=== PATIENT | male | born 1965 | race Caucasian/White ===

== ENCOUNTER → 2020-03-15 09:08 | Outpatient (BNVA) | payer BC, SELFPAY | PROVIDERS: PCP Internal Medicine; Referring Provider Internal Medicine; Visit Provider Surgery | DX: Z76.89 Persons encountering health services in other specified circumstances (principal) ==

== ENCOUNTER 2020-03-25 09:25 | Day surgery (SDC) | payer BC, SELFPAY ==
[2020-03-21 15:16] VITALS: BMI 20.9
--- NOTE | 2020-03-22 11:19 | P.CONAN_ITS ---
Documented by User: Tata Hicks 03/22/20 11:19 HPI - Anesthesia Eval Consult details Narrative: 54yo M for right Hernia Repair Inguinal [facility] Past Medical History Medical History Colon polyps Right inguinal hernia Family History Family History Paternal Grandfather History of lung cancer Paternal Uncle History of lung cancer Surgical History Surgical History History of colonoscopy (~2018) History of herniorrhaphy History of left inguinal hernia repair (~1999) History of vasectomy Social History Social History Smoking Status: Never smoker Second Hand Smoke Exposure: No Use of substances other than those prescribed or required for medical reasons: No Advance Directives: No Advance Directives Information Provided: Yes Advance Directives on File: No Meds Allergies Allergy/AdvReac Type Severity Reaction Status Date / Time No Known Allergies Allergy Verified 03/15/20 08:41 Exam Exam Date and Time: March 22, 2020 1119 Height,Weight and Vital Signs: Height 6 ft 2 in Weight 73.9 kg Assessment and Plan Assessment Anesthesia Assessment: Chart Reviewed Documented by User: Luz Naranjo 03/25/20 12:12 [facility] Past Medical History Medical History Colon polyps Right inguinal hernia Family History Family History Paternal Grandfather History of lung cancer Paternal Uncle History of lung cancer Family history of problems with anesthesia: No Surgical History Surgical History History of colonoscopy (~2018) History of herniorrhaphy History of left inguinal hernia repair (~1999) History of vasectomy History of Problems with Anesthesia: No Social History Social History Smoking Status: Never smoker Second Hand Smoke Exposure: No Use of substances other than those prescribed or required for medical reasons: No Advance Directives: No Advance Directives Information Provided: Yes Advance Directives on File: No Meds Allergies Allergy/AdvReac Type Severity Reaction Status Date / Time No Known Allergies Allergy Verified 03/15/20 08:41 Exam Height,Weight and Vital Signs: Vital Signs Temp Pulse Resp BP Pulse Ox 03/25/20 10:06 97.1 F 62 16 120/83 98 Airway Mallampati Class: I TM Dist: >3cm Neck ROM: Full Heart: RRR Lungs: CTAB Assessment and Plan Assessment Anesthesia Assessment: Anesthesia Plan Discussed and Chart Reviewed Final Anesthetic Review NPO: Yes ASA Class: I Final Preanesthetic Review: No Changes in Pt Med Stat, Consent Obtained/Reviewed and Anes Risks/Benef Reviewed Patient Risk: Low Procedure Risk: Low Anesthetic Plan Anesthetic Plan: GA Disposition: Standard PACU
[2020-03-25 10:06] VITALS: BP 120/83; PULSE 62; RESP 16; TEMP 36.2; O2SAT 98
[2020-03-25] MEDS: Lactated Ringers 1,000 ML 100 ML IVCONT (10:22)
[2020-03-25] MEDS: ceFAZolin Sodium/Dextrose,Iso 2 GM/50 ML PIGGYBACK IV (10:22)
--- NOTE | 2020-03-25 10:49 | MHC.SHP ---
Pre-Procedural Eval Section A The patient is an INPATIENT: No Changes since office visit: Yes Patient answered all questions; No Cold of Flu in the past 2 weeks, No New Medical Problems and No Changes in Medication The History & Physical has been completed within 30 days and I have reviewed it.: Yes Section B Chief Complaint: Right Inguinal Hernia Allergies: Allergies Allergy/AdvReac Type Severity Reaction Status Date / Time No Known Allergies Allergy Verified 03/15/20 08:41 Plan Diagnosis/Plan: Unchanged Patient has been examined and remains a candidate for the planned procedure
--- NOTE | 2020-03-25 11:37 | PM.OP ---
Brief Operative Note Date of procedure: 03/25/20 Pre-op diagnosis: Right inguinal hernia Post-op diagnosis: same Procedure: repair of right inguinal hernia with mesh Implants: PHS mesh large Extended Surgeon: Adi Walton MD Anesthesia: GETA Estimated blood loss (mL): 5 Pathology: none sent Condition: stable Disposition: PACU
--- NOTE | 2020-03-25 11:39 | P.OP_ITS ---
Operative Note Operative Note Narrative: Date of procedure: 03/25/20 Pre-op diagnosis: Right inguinal hernia Post-op diagnosis: same Procedure: repair of right inguinal hernia with mesh Indications for surgery: 54-year-old male patient presenting with a lump in the right groin which increases with Valsalva maneuvers, coughing, sneezing and is causing discomfort. The hernia is reducible with light pressure. Presents today for repair with mesh Operative findings: Patient was found to have a small indirect hernia with lipoma of the cord. Procedure details: The patient was brought to the OR placed in the supine position. After administering general anesthesia the patient's abdomen was prepped with ChloraPrep and draped in a sterile fashion. A surgical time-out was called and consent confirmed. Patient received preoperative antibiotics and Venodyne boots were placed. Local anesthesia consisting of 0.75% Sensorcaine was infiltrated over the right inguinal ligament. Incision was then made with the scalpel just above the inguinal ligament and oblique fashion. This was carried down through subcutaneous tissue, past Sunday's fascia, and up to the external oblique aponeurosis. Additional local was placed below the aponeurosis. The aponeurosis was then incised in the direction of the fibers. This was then widened with Metzenbaum scissors. The spermatic cord was then dissected free from the inguinal canal and retracted with a [place] drain. The floor of the inguinal canal was found to be intact without hernia. Fibers of the cremasteric muscle were then between clamps and a small hernia sac identified. Small lipoma was also identified within the Spermatic cord. This was freed up from the surrounding tissue and then reduced into the abdominal cavity. Fibers of the internal oblique aponeurosis and transversalis aponeurosis were then incised with the cautery. The preperitoneal space was then entered. The space was then widened with a open Ray-Jaquelin sponge. And large extended PHS mesh was then obtained. The circular underlay was placed in the preperitoneal space. The overlay was then secured to the pubic tubercle conjoined tendon and shelving edge of the inguinal ligament using a 0 Polysorb suture. A slit was made in the mesh to allow passage of the spermatic cord at the internal ring. This was then wrapped around the cord and secured to the shelving edge of the inguinal ligament. The opening was fashion to allow the tip of an index finger to pass. The remainder of the extended mesh was placed below the external oblique aponeurosis laterally. Wounds were then irrigated with saline solution and suctioned dry. External oblique aponeurosis was then closed using a running 2 0 Polysorb suture. Sunday's fascia and dermis were then reapproximated using interrupted 3 0 Polysorb sutures. Skin was then closed using a running subcuticular 4 0 Polysorb suture. Steri-Strips 3 x 3 gauze and Tegaderm were then applied. Implants: PHS mesh large Extended Surgeon: Adi Walton MD Anesthesia: GETA Pathology: none sent Condition: stable Disposition: PACU
[2020-03-25 12:59] VITALS: BP 125/79; PULSE 61; RESP 16; TEMP 36.3; O2SAT 99
[2020-03-25 13:04] VITALS: BP 120/76; PULSE 53; RESP 16; O2SAT 99
[2020-03-25 13:09] VITALS: BP 120/81; PULSE 52; RESP 16; O2SAT 100
[2020-03-25 13:14] VITALS: BP 117/72; PULSE 53; RESP 18; O2SAT 100
[2020-03-25 13:29] VITALS: BP 121/77; PULSE 52; RESP 16; O2SAT 99
--- NOTE | 2020-03-25 14:12 | HO.POSTANES ---
Post Anesthesia Evaluation Post Anesthesia Evaluation Vital Signs: Vital Signs Temp Pulse Resp BP Pulse Ox 03/25/20 13:29 97.3 F 52 16 121/77 99 03/25/20 13:14 53 18 117/72 100 03/25/20 13:09 52 16 120/81 100 03/25/20 13:04 53 16 120/76 99 03/25/20 12:59 97.3 F 61 16 125/79 99 03/25/20 10:06 97.1 F 62 16 120/83 98 Anesthesia: General LMA Mental Status: Awake Pain Control: Satisfactory Nausea/Vomiting: None Hydration: Adequate Anesthesia-Related Issues: No Anes. Related Issues
== END 2020-03-25 23:59 | disposition home or self-care (01) ==
PROVIDERS: PCP Internal Medicine; Visit Provider Surgery
PROC: (CPT 49505; principal; 2020-03-25 11:00)
DX: K40.90 Unilateral inguinal hernia, without obstruction or gangrene, not specified as recurrent (principal); D17.6 Benign lipomatous neoplasm of spermatic cord
CPT/HCPCS: 49505; C1781; J0690; J1100; J1885; J2250; J2405; J3010

== ENCOUNTER → 2020-04-03 13:19 | Outpatient (BNVA) | payer BC, SELFPAY | PROVIDERS: PCP Internal Medicine; Visit Provider Surgery | DX: Z76.89 Persons encountering health services in other specified circumstances (principal) ==

== ENCOUNTER → 2020-05-01 08:19 | Outpatient (BNVA) | payer BC, SELFPAY | PROVIDERS: PCP Internal Medicine; Visit Provider Surgery | DX: Z76.89 Persons encountering health services in other specified circumstances (principal) ==

== ENCOUNTER 2024-08-01 09:10 | Outpatient (AMB) | payer BC, SELFPAY ==
[2024-08-01 09:14] VITALS: BP 130/80; PULSE 82; RESP 14; TEMP 36.8; O2SAT 98; BMI 21.3
--- NOTE | 2024-08-01 09:14 | A.OFFPC_ITS ---
Vital Signs 08/01/24 09:14 Height 6 ft 2 in Weight 166 lb BMI 21.3 BP 130/80 Respiration 14 Pulse 82 Pulse Source Pulse Oximeter Temp 98.2 F Pulse Oximetry (%) 98 Oxygen Delivery Method Room Air Intake Visit Reasons: lab results Technical Services Assistant Required: No Accompanied by: Self / Same As Patient Allergies No Known Allergies Allergy (Verified 08/01/24 09:19) Tobacco use date assessed: 08/01/24 Dental Screening Dental Screen Date: 08/01/24 Did you have a dental visit in the last 12 months?: Yes Did you have a dental problem in the last 6 months where you did not have access to dental care?: No [facility] Medical History (Updated 08/01/24 @ 09:51 by Alvarado Diaz MD) Generalized anxiety disorder General medical exam Right inguinal hernia Colon polyps Surgical History S/P right inguinal hernia repair (~03/2020) History of left inguinal hernia repair (~1999) History of colonoscopy (~2018) History of vasectomy History of herniorrhaphy Family History Paternal Grandfather History of lung cancer Paternal Uncle History of lung cancer Social History Housing: House Patient Tobacco Use Status: Former Tobacco user Second Hand Smoke Exposure: No service: No Current occupational status: employed Cognitive needs: No Hearing needs: No Vision needs: Yes Questionnaire PHQ-9 Over the last 2 weeks, how often have you been bothered by any of the following problems? 1. Little interest or pleasure in doing things: not at all 2. Feeling down, depressed, or hopeless: not at all 3. Trouble falling or staying asleep, or sleeping too much: not at all 4. Feeling tired or having little energy: not at all 5. Poor appetite or overeating: not at all 6. Feeling bad about yourself - or that you are a failure or have let yourself or your family down: not at all 7. Trouble concentrating on things, such as reading the newspaper or watching television: not at all 8. Moving or speaking so slowly that other people could have noticed. Or the opposite - being so fidgety or restless that you have been moving around a lot more than usual: not at all 9. Thoughts that you would be better off or of hurting yourself in some way: not at all Total score: 0 Source: Developed by Drs. Gio Sarah, Sheila aHys, Chicho Bailey and colleagues, with an educational mathew from [employer]. Thrive Questionnaire Date Thrive assessed: 08/01/24 I am a: Patient What is your living situation today?: I have a steady place to live Within the past 12 months, did the food you bought not last and you didn't have the money to get more?: Never true Within the past 12 months, did you worry whether your food would run out before you got money to buy more?: Never true Do you have trouble paying for medicines?: No Do you have trouble getting transportation to medical appointments?: No Do you have trouble paying your heating and electricity bill?: No Do you have trouble taking care of your child, family member or friend?: No Do you have trouble with day-to-day activities such as bathing, preparing meals, shopping, managing finances, etc.?: No Are you currently unemployed and looking for a job?: No Are you interested in more education?: No THRIVE Score: 0 AUDIT C Alcohol Use Questionnaire (AUDIT-C) 1. How often do you have a drink containing alcohol?: 4 or more times a week 2. How many drinks containing alcohol do you have on a typical day when you are drinking?: 1 or 2 3. How often do you have six or more drinks on one occasion?: Never Total Score: 4 MIKA-7 AMB Questionnaire MIKA-7 Date MIKA - 7 assessed: 08/01/24 Feeling nervous, anxious, or on edge: 0 = Not at all Not being able to stop or control worryin = Not at all Worrying too much about different things: 0 = Not at all Trouble relaxin = Not at all Being so restless that it is hard to sit still: 0 = Not at all Becoming easily annoyed or irritable: 0 = Not at all Feeling afraid as if something awful might happen: 0 = Not at all Total MIKA-7 score (0-4 normal; 5-9 mild; 10-14 moderate; 15-21 severe): 0 Source: Developed by Drs. Gio Sarah, Sheila Hays, Chicho Bailey and colleagues, with an educational mathew from [employer]. Physical exam (Primary Care) Vital Signs: Last Vital Signs Temp 98.2 F 08/01/24 09:14 Pulse 82 08/01/24 09:14 Resp 14 08/01/24 09:14 BP 130/80 08/01/24 09:14 Pulse Ox 98 08/01/24 09:14 Oxygen Delivery Method Room Air 08/01/24 09:14 BMI result Body Mass Index 21.3 Tobacco/Smoking Status: Tobacco use Status Tobacco use date assessed 08/01/24 08/01/24 09:22 Patient Tobacco Use Status Former Tobacco user 08/01/24 09:22 PHQ-9: PHQ-9 Score PHQ-9: Total score 0 08/01/24 09:22 Thrive Assessment: Date of Thrive Assessment Date Thrive assessed 08/01/24 08/01/24 09:22 Coding Level of Care Code New Pt Level 4 (17367) Complex EM visit Add On G2211 Diagnoses Generalized anxiety disorder F41.1 Assessment & Plan Assessment & Plan (1) Generalized anxiety disorder: Code(s): F41.1 - Generalized anxiety disorder Category: Medical Plan: History of Present Illness The patient is a 59-year-old male presenting for a wellness visit with a primary focus on addressing susceptibility to measles, mumps, and rubella (MMR). Having previously not contracted measles during childhood and with potential increased risk due to professional interactions with children, the patient seeks immunization as a precautionary measure. The patient's blood work indicated low measles immunity, prompting a visit to discuss MMR vaccination logistics. Additionally, the patient has a history of depression, effectively managed on a reduced dosage of an antidepressant initially prescribed at 10 mg per day. The patient reports positive outcomes on 5 mg intake, with an abundance of medication over time due to automatic refills. The patient's psychiatric conditi on appears stable under the adjusted regimen. Past medical history includes a routine monitoring plan for colon polyps identified about 22 years ago resulting in a colonoscopy protocol every five yea rs. Recent screenings indicate no emerging issues, and previous detections were non-cancerous. Monitoring continues as per protocol given prior findings. 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 - , with a family that includes young adult offspring. - Resides in [place], requiring possible travel for medical care. Review of Systems - Gastrointestinal: Reports past bowel issues and history of colon polyps. - Psychiatric: Reports managed depression with prescribed antidepressant. Physical Exam General: Cooperative and healthy appearing Nutritional Appearance: Well nourished Orientation/consciousness: Patient oriented x3 Limitations: No limitations Head: Normal to inspection General: Appearance normal, both eyes and all related structures Neck: Normal visual inspection Chest: Normal palpation of entire chest wall Respiratory: Normal respiratory effort Neurology: Patient oriented x3 Results - Labs: Blood work indicating susceptibility to measles, mumps, rubella due to lack of immunity. Plan An MMR vaccine was advised following susceptibility findings, with acquisition arrangements initiated. The patient's depression management will remain consistent, maintaining the 5 mg daily dosage of the antidepressant. Future refills will be adjusted accordingly. Ongoing colonoscopy protocol adherence remains essential, with no current concerns since prior screenings have shown benign results. Patient was informed and verbally consented to the use of an ambient scribe for clinic note documentation during this visit. Discussion Notes During our discussion, the importance of obtaining the MMR vaccine was highlighted due to bloodwork findings suggesting susceptibility to measles. Logistics for acquiring the vaccine at a [facility]-based facility were clarified. We reviewed the patient's antidepressant management plan, agreeing on sustaining the 5 mg dose level for consistent symptom relief, while addressing the automatic refill issue by amending the script at the corresponding dosage. I reiterated the significance of adhering to the scheduled colonoscopy surveillance in light of previous colon polyp findings. The patient understands the plan and expressed consent and satisfaction with the proposed measures. Patient Instructions - Schedule and receive the MMR vaccine at the designated [facility] facility. - Continue current antidepressant dosage of 5 mg daily. Ensure prescription refills are adjusted to this dosage. - Maintain adherence to routine colonoscopy screenings as planned. - Report any new symptoms or concerns promptly. Medications: New escitalopram oxalate 5 mg PO DAILY 90 tabs 1RF
== END 2024-08-01 09:40 | disposition home or self-care (01) ==
LOC: HO.HMCSH 09:10
PROVIDERS: PCP Internal Medicine; Visit Provider Internal Medicine
DX: F41.1 Generalized anxiety disorder (principal)

== ENCOUNTER → 2024-08-01 09:10 | Outpatient (BNVA) | payer BC, SELFPAY | PROVIDERS: PCP Internal Medicine; Visit Provider Internal Medicine | DX: Z23 Encounter for immunization (principal) | CPT/HCPCS: 90471; 90707 ==

== ENCOUNTER 2024-08-01 09:52 | Outpatient (AMB) | payer BC, SELFPAY ==
--- NOTE | 2024-08-01 10:02 | AM.OFFVISNUR ---
Intake Visit Reasons: MMR - per dr orozco Allergies No Known Allergies Allergy (Verified 08/01/24 09:19) Immunizations M-M-R II (PF) 1,000-12,500 TCID50/0.5 mL subcutaneous solution Performing Provider: Alvarado Diaz MD Performing Location: [facility] [place] [facility] Administered by: Mal Martin CMA on 08/01/24 10:03 Dose Route Admin Location Dispensed Lot Number Expiration Date [facility] Information Systems Security Analyst 0.5 mL subcut Left Arm 0.5 mL [id number] 07/05/25 [id number] [employer] VIS Given Date VIS Provided VIS Publication Date 08/01/24 Single Vaccine 20 Eligibility Eligibility Date Funding Source Not [facility] Eligible 08/01/24 Private Assessment & Plan Assessment & Plan Orders: Orders MMR Immunization Today Z23 - Encounter for immunization Medications: New M-M-R II (PF) (measles,mumps,rubella vacc(PF)) 0.5 mL subcut ONCE 1 ea 0RF NS Z23 - Encounter for immunization Coding
== END 2024-08-01 10:55 | disposition home or self-care (01) ==
PROVIDERS: PCP Internal Medicine; Visit Provider Internal Medicine
DX: Z23 Encounter for immunization (principal)